=== PATIENT | male | born 1990 | race Caucasian/White ===

== ENCOUNTER 2022-01-01 15:50 | Emergency (ER) | payer OTHER, SELFPAY ==
[2022-01-01] MEDS ORDERED: ceFAZolin 2 GM/Dextrose 50 ML IVPB ONE (16:02)
[2022-01-01] MEDS ORDERED: Boostrix 0.5 ML (Tdap) VIAL ONE (16:02)
[2022-01-01 16:23] LABS: #Basophils 0.1 10x3/uL (0.0-0.2); #Eosinphils 0.5 10x3/uL (0.0-0.5); #Monocytes 1.1 10x3/uL (0.0-1.1); #Neutrophils 6.3 10x3/uL (1.5-8.4); %Lymphocytes 29.2 % (18.0-47.0); %Monocytes 9.8 % (0.0-10.0); Hemoglobin 14.1 g/dL (13.5-17.5); Mean Corpuscular HGB CONC 32.8 g/dL (32.0-36.0); Mean Corpuscular Hemoglobin 29.1 pg (27.0-33.0); Mean Corpuscular Volume 88.8 fl (81.2-95.1); Mean Platelet Volume 9.6 fl (7.4-10.4); Platelet Count 346 10x3/uL (150-450); RBC Distribution Width 13.7 % (11.5-14.5); Red Blood Cell (RBC) Count 4.84 10x6/uL (4.32-5.72); White Blood Cell (WBC) Count 11.4 10x3/uL (3.5-10.5)
[2022-01-01 16:33] LABS: ALT (SGPT) 40 U/L (8-55); AST (SGOT) 36 U/L (5-34); Albumin 3.4 g/dL (3.5-5.0); Alkaline Phosphatase 33 U/L (40-110); Anion Gap 13 mmol/L (10-20); BUN (Urea Nitrogen) 19 mg/dL (8.9-20.6); Bilirubin, Total 0.5 mg/dL (0.2-1.2); Calc. Creatinine Clearance 0 mL/min (70-130); Calcium 8.3 mg/dL (7.8-10.44); Carbon Dioxide 20 mmol/L (22-29); Chloride 111 mmol/L (98-107); Globulin 2.2 g/dL (2.4-3.5); Glucose 132 mg/dL (70-105); Protein, Total 5.6 g/dL (6.0-8.3)
[2022-01-01 16:35] LABS: Sodium 141 mmol/L (136-145)
== END 2022-01-01 16:45 | disposition short-term general hospital (02) ==
LOC: CSHERS 15:50
DX: S82.302B Unspecified fracture of lower end of left tibia, initial encounter for open fracture type I or II (principal); S32.402A Unspecified fracture of left acetabulum, initial encounter for closed fracture; S82.832B Other fracture of upper and lower end of left fibula, initial encounter for open fracture type I or II; S73.015A Posterior dislocation of left hip, initial encounter; V23.4XXA Motorcycle driver injured in collision with car, pick-up truck or van in traffic accident, initial encounter
CPT/HCPCS: 29515; 36415; 36430; 71045; 72170; 80053; 83605; 85025; 86850; 86900; 86901; 90471; 90715; 96374; J0690